=== PATIENT | female | born 1935 | race Caucasian/White ===

== ENCOUNTER 2023-02-14 10:21 | Emergency (ER) | payer MEDICARE, OTHER, SELFPAY ==
[2023-02-14 10:26] VITALS: BP 181/93; PULSE 71; RESP 16; TEMP 36.7; O2SAT 97
--- NOTE | 2023-02-14 10:45 | ED_ITS ---
HPI - General Adult General Time Seen by Provider: 10:45 Date Seen: 02/14/23 Chief complaint: Lower Extremity Swelling Stated complaint: Pain in L calf/knee Time Seen by Provider: 02/14/23 10:34 Source: patient and RN notes reviewed Mode of arrival: ambulatory Limitations: no limitations History of Present Illness HPI narrative: Patient coming in with left knee pain over last couple of days. No known injury/trauma, no fevers. 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 She states that they never did find out underlying cause. Hurts most with movement, like getting up, possibly bending. There is some discomfort with walking. I do not get sense of instability as she states her balance is off baseline. Has not noted any erythema, no increased lower leg swelling, does wear compression stocking on that leg. She ended up having right lower extremity amputated due to ischemia. She reports recent INR, possibly even this week, of 2.1 in clinic. Nursing staff later reported that patient is on potassium Lasix, has had some medication adjustments. Did wonder if we should check electrolytes. I did subsequently order basic metabolic panel, certainly the nurse's thought of possible muscle cramps was a very reasonable thought. We will update INR since we are doing blood work just to ensure stability. Related Data Home Medications Medication Instructions Recorded Confirmed alendronate 70 mg tablet 70 mg PO 02/14/23 amlodipine 10 mg tablet 10 mg PO DAILY 02/14/23 02/14/23 atorvastatin 20 mg tablet 20 mg PO DAILY cholesterol 02/14/23 02/14/23 fluoxetine 40 mg capsule 20 mg PO QAM 02/14/23 02/14/23 furosemide 40 mg tablet 20 mg PO DAILY swelling 02/14/23 02/14/23 gabapentin 600 mg tablet mg PO 02/14/23 hydralazine 25 mg tablet 25 mg PO 3XD blood pressure 02/14/23 02/14/23 losartan 100 mg tablet 100 mg PO DAILY 02/14/23 02/14/23 metoprolol succinate 100 mg 100 mg PO blood pressure 02/14/23 tablet,extended release 24 hr potassium chloride 10 mEq 10 meq PO DAILY 02/14/23 02/14/23 tablet,extended release warfarin 2 mg tablet 6 mg PO DAILY 02/14/23 02/14/23 warfarin 5 mg tablet 5 mg PO .dailyw 02/14/23 02/14/23 Allergies Allergy/AdvReac Type Severity Reaction Status Date / Time No Known Drug Allergies Allergy Verified 02/14/23 10:32 [facility] Social History Smoking Status: Never smoker Do you use any of these nicotine containing products: None Second hand tobacco smoke exposure: No How often do you have a drink containing alcohol: never AUDIT-C Alcohol total score: 0 Non-prescribed substance use: denies use service: No Exam Const: Vital Signs, click to edit/add: Vital Signs - 24 hr 02/14/23 10:26 Temperature 98.0 F Pulse Rate [Pulse Oximeter] 71 Respiratory Rate 16 Blood Pressure [Ri ght Upper Arm] 181/93 H Pulse Oximetry 97 Oxygen Delivery Me thod Room Air Documenting provider has reviewed patient's vital signs: yes Common normals: no apparent distress, oriented x3, no limitations, healthy appearing, alert and well nourished General appearance: cooperative, comfortable, well kempt and well developed HENMT: Common normals: normocephalic, head/scalp atraumatic, hearing grossly normal bilaterally and external nose normal Head and scalp: normocephalic and atraumatic Face and sinus: normal facial exam Nose: external nose normal Eye: Common normals: PERRL, EOMs intact bilaterally, conjunctivae normal and no scleral icterus Conjunctiva: conjunctiva(e) normal Pupil: PERRL Resp: Common normals: normal respiratory effort, no retractions, no use of accessory muscles and clear to auscultation bilaterally Auscultation: clear to auscultation bilaterally Cardio: Common normals: regular rate, regular rhythm, S1 normal heart sound, S2 normal heart sound, no gallops, no clicks and no murmurs Rate: regular rate Rhythm: regular rhythm Heart sounds: S1 normal and S2 normal GI: Common normals: Normal to inspection, nondistended, normoactive bowel sounds present, soft to palpation, non-tender and no hepatosplenomegaly Palpation: soft and no hepatosplenomegaly Extremity: Other: Compression stocking removed from LLE, no underlying edema, good strong pulses in foot (dorsalis pedis, posterior tibialis), entire extremity with normal coloration and warmth, no erythema/mottling/vascular changes noted. The knee itself has some medial joint line tenderness, can do full flexion/extension through the knee without complaint of pain, no laxity noted. No effusion noted. 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 I cannot 100% effectively tell her though on clinical exam. Thus, will obtain venous and arterial imaging with ultrasound to ensure no occlusion. Did later order lecture lytes an INR to ensure that her INR was therapeutic. We will get an x-ray of her knee. I have also reviewed with her that arthritis, things like Conroy cyst can cause pain. I suspect her pain is coming from the knee joint but this remains to be seen. Nursing staff upon talking to at 1 point thought maybe possible muscle cramps, also consideration, electrolytes pending. Reevaluation(s) Reevaluation #1: Have reviewed with patient her negative venous and arterial ultrasounds. Her knee x-ray does show some mild arthritis. 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 Electrolytes looked fine. Recommendations for follow-up with her primary care provider reviewed, consideration of steroid injection in knee for symptomatic relief of Conroy cyst. May need to go to Orthopedics given that she is on anticoagulation. Time: 13:16 Vital Signs Vital signs: Initial Vital Signs Temperature 98.0 F 02/14/23 10:26 Temperature Source Temporal Artery Scan 02/14/23 10:26 Pulse Rate 71 02/14/23 10:26 Pulse Rhythm Regular 02/14/23 10:26 Pulse Strength 3+ Normal 02/14/23 10:26 Respiratory Rate 16 02/14/23 10:26 Blood Pressure 181/93 H 02/14/23 10:26 Blood Pressure Mean 122 H 02/14/23 10:26 Blood Pressure Position Sitting 02/14/23 10:26 Pulse Oximetry 97 02/14/23 10:26 Oxygen Delivery Method Room Air 02/14/23 10:26 Vital Signs Temperature 98.0 F 02/14/23 10:26 Pulse Rate 71 02/14/23 10:26 Respiratory Rate 16 02/14/23 10:26 Blood Pressure 181/93 H 02/14/23 10:26 Pulse Oximetry 97 02/14/23 10:26 Oxygen Delivery Method Room Air 02/14/23 10:26 Temperature 98.0 F 02/14/23 10:26 Pulse Rate 71 02/14/23 10:26 Respiratory Rate 16 02/14/23 10:26 Blood Pressure 181/93 H 02/14/23 10:26 Pulse Oximetry 97 02/14/23 10:26 Oxygen Delivery Method Room Air 02/14/23 10:26 Medical Decision Making Lab Data Lab results reviewed: Yes I reviewed the patient's lab results Lab results narrative: Magnesium was ordered but we were unable to do so due to limit its with the reagent for this on the machine. Labs: Lab Results 02/14/23 Range/Units 12:20 INR 2.34 H (0.91-1.10) Sodium 139 (135-149) mmol/L Potassium 3.9 (3.6-5.1) mmol/L Chloride 101 (96-114) mmol/L Carbon Dioxide 30 (20-32) mmol/L BUN 16 (7-30) mg/dL Creatinine 1.2 (0.5-1.5) mg/dL Estimated Creat Clear 30.84 Estimated GFR 44 ml/min Glucose 103 (60-115) mg/dL Calcium 9.9 (8.4-10.6) mg/dL Imaging Data XR left knee: Attestation: I have reviewed the pertinent imaging results. My impression: I appreciate medial joint space narrowing and some spurring on the medial aspect. Await Radiology over-read. Radiologist's impression: Patient: MELANY PARSONS Facility:?[facility] Patient ID:?[id number] Site Patient ID:?[id number]. Site :?[id number] Study:?XRay Knee Left -02/14/2023 11:11:18 AM Ordering Physician:?Lora Austin Final Report: Indication: Knee pain Technique: Left knee 2 views Comparison: None Findings: Medial compartment narrowing and spurring. Spurring of the medial tibial spine. Vascular calcifications. Patellofemoral spurring. No joint effusion. No fracture. Impression: Medial and patellofemoral compartment degenerative joint disease. Dictated by Dionte Gabriel MD @ 02/14/2023 11:27:50 AM (Electronic Signature) US venous: Attestation: I have reviewed the pertinent imaging results. Radiologist's impression: Patient: MELANY PARSONS Facility:?[facility] Patient ID:?[id number] Site Patient ID:?[id number]. Site :?[id number] Study:?US Extremity Left DVT-02/14/2023 12:15:34 PM Ordering Physician:Nav Austin Final Report: INDICATION: Pain posterior to the left knee TECHNIQUE: Ultrasound venous duplex lower left extremity. Compression venous exam was performed using flores-scale, color Doppler, and spectral Doppler analysis. COMPARISON: None FINDINGS: Sonographic imaging demonstrates the left common femoral, deep femoral, superficial femoral, popliteal, posterior tibial and greater saphenous veins to be fully compressible with normal color Doppler blood flow. 1.3 centimeter x 0.5 centimeter x 0.7 centimeter Conroy`s cyst. IMPRESSION: Normal left lower extremity venous ultrasound, no sign of deep venous thrombosis. 1.3 centimeter left Conroy`s cyst. Dictated by Dionte Kamara MD @ 02/14/2023 12:59:39 PM Dictated by: Dionte Kamara MD @ 02/14/2023 12:59:45 (Electronic Signature) US arterial: Attestation: I have reviewed the pertinent imaging results. Radiologist's impression: Patient: MELANY PARSONS Facility:?[facility] Patient ID:?[id number]?1935 Study:?US Extremity Left arterial-02/14/2023 12:14:36 PM Ordering Physician:Nav Austin Final Report: DUPLEX ARTERIAL ULTRASOUND LEFT LOWER EXTREMITY, 02/14/2023 CLINICAL HISTORY: Left lower extremity arterial pain. 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 COMPARISON: None. TECHNIQUE: The left lower extremity arteries were examined per exam specific protocol with flores-scale ultrasound, color-flow and Doppler spectral analysis. Peak systolic velocities (PSV), Doppler waveform quality and Velocity Ratios if applicable, were documented at sites per exam specific protocol. FINDINGS: LEFT: PSV (cm/second). Waveform (Tri-T, Bi-B Henry-M). CURTAIN SUPERVISOR: 98. T DFA: 95. B FA PRX: 99. T FA MID: 85. T FA DISTAL: 71. T POP A: 60. MULTI CADE A: 39. M BODY TRIMMER UPHOLSTERER: 78. B NURY: 38. B DPA: 52. B Mildly multiphasic waveforms are seen throughout the left lower extremity arterial system with monophasic waveforms in the peroneal artery. No hemodynamically significant stenoses or occlusions are identified. IMPRESSION: Predominantly multiphasic waveforms throughout the left lower extremity arterial system. No evidence of hemodynamically significant stenoses or occlusions. Jone Carlisle M.D. Vascular [facility] Interventional [email or web address] D& Transcribed: 12:41 p.m. jacob/Dictated by: Jone Carlisle MD @ 02/14/2023 12:29:00 PM (Electronic Signature) Discharge Plan Discharge Clinical Impression: Conroy cyst, Knee osteoarthritis Patient Disposition: Home, Self-Care Condition: Stable Instructions: Osteoarthritis (ED), Conroy Cyst (ED) Additional Instructions: INR is good today at 2.34. Your electrolytes were normal. There is some mild arthritis in this knee and there is a Conroy cyst demonstrated on ultrasound. I would recommend follow-up with your primary care provider, they can refer you for possible joint injection or perform this themselves if they are comfortable with the procedure. It is likely the pain your exhibiting is coming from the knee itself in the Conroy cyst. Sometimes a Conroy cyst will rupture and then you may feel pain moving down into the calf. I would recommend Tylenol, up to a 1000 mg 3 times a day as needed for pain. Activity Level: Activity as Tolerated Prescriptions: No Action warfarin 5 mg tablet 5 mg PO .dailyw Patient Comments: 5mg wednesdays. 6mg every other day. warfarin 2 mg tablet 6 mg PO DAILY Patient Comments: 6mg every day but wednesdays furosemide 40 mg tablet 20 mg PO DAILY fluoxetine 40 mg capsule 20 mg PO QAM gabapentin 600 mg tablet PO atorvastatin 20 mg tablet 20 mg PO DAILY alendronate 70 mg tablet 70 mg PO metoprolol succinate 100 mg tablet extended release 24 hr 100 mg PO hydralazine 25 mg tablet 25 mg PO 3XD potassium chloride 10 mEq tablet extended release 10 meq PO DAILY amlodipine 10 mg tablet 10 mg PO DAILY losartan 100 mg tablet 100 mg PO DAILY Follow Up/Referrals: Dustin Kessler MD [Referring] - Stand Alone Forms: [facility] Info Instructions
--- NOTE | 2023-02-14 10:54 | CRLHL7_ITS ---
For Patients: As a result of the Century Cures Act, medical imaging exams and procedure reports are released immediately into your electronic medical record. You may view this report before your referring provider. If you have questions, please contact your health care provider. Indication: Knee pain Technique: Left knee 2 views Comparison: None Findings: Medial compartment narrowing and spurring. Spurring of the medial tibial spine. Vascular calcifications. Patellofemoral spurring. No joint effusion. No fracture. Impression: Medial and patellofemoral compartment degenerative joint disease. Dictated by Dionte Gabriel MD @ 02/14/2023 11:27:50 AM (Electronically Signed)
--- NOTE | 2023-02-14 10:56 | CRLHL7_ITS ---
For Patients: As a result of the Century Cures Act, medical imaging exams and procedure reports are released immediately into your electronic medical record. You may view this report before your referring provider. If you have questions, please contact your health care provider. DUPLEX ARTERIAL ULTRASOUND LEFT LOWER EXTREMITY, 02/14/2023 CLINICAL HISTORY: Left lower extremity arterial pain. 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 COMPARISON: None. TECHNIQUE: The left lower extremity arteries were examined per exam specific protocol with flores-scale ultrasound, color-flow and Doppler spectral analysis. Peak systolic velocities (PSV), Doppler waveform quality and Velocity Ratios if applicable, were documented at sites per exam specific protocol. FINDINGS: LEFT: PSV (cm/second). Waveform (Tri-T, Bi-B Ponce-M). MAINTENANCE TRAINER: 98. T DFA: 95. B FA PRX: 99. T FA MID: 85. T FA DISTAL: 71. T POP A: 60. MULTI CADE A: 39. M FILM WRITER: 78. B NURY: 38. B DPA: 52. B Mildly multiphasic waveforms are seen throughout the left lower extremity arterial system with monophasic waveforms in the peroneal artery. No hemodynamically significant stenoses or occlusions are identified. IMPRESSION: Predominantly multiphasic waveforms throughout the left lower extremity arterial system. No evidence of hemodynamically significant stenoses or occlusions. Jone Carlisle M.D. [email or web address] james/Dictated by: Jone Carlisle MD @ 02/14/2023 12:29:00 PM (Electronically Signed)
--- NOTE | 2023-02-14 10:57 | CRLHL7_ITS ---
For Patients: As a result of the Century Cures Act, medical imaging exams and procedure reports are released immediately into your electronic medical record. You may view this report before your referring provider. If you have questions, please contact your health care provider. INDICATION: Pain posterior to the left knee TECHNIQUE: Ultrasound venous duplex lower left extremity. Compression venous exam was performed using flores-scale, color Doppler, and spectral Doppler analysis. COMPARISON: None FINDINGS: Sonographic imaging demonstrates the left common femoral, deep femoral, superficial femoral, popliteal, posterior tibial and greater saphenous veins to be fully compressible with normal color Doppler blood flow. 1.3 centimeter x 0.5 centimeter x 0.7 centimeter Conroy`s cyst. IMPRESSION: Normal left lower extremity venous ultrasound, no sign of deep venous thrombosis. 1.3 centimeter left Conroy`s cyst. Dictated by Dionte Kamara MD @ 02/14/2023 12:59:39 PM Dictated by: Dionte Kamara MD @ 02/14/2023 12:59:45 (Electronically Signed)
--- NOTE | 2023-02-14 12:00 | PC.NURSE ---
Patient has voided X2. States she is urinating more than normal. Patients PCP stopped her Blood sugar medication last week. Recommened she check her blood sugar daily and follow up with her PCP. Also taking a diuretic.
--- NOTE | 2023-02-14 12:10 | ED.NURSE ---
Urinating more than usual. Denies UTI symptoms. PCP stopped her metformin last week. Decreased her lasix and on potassium. notified MD of this. Labs ordered.
[2023-02-14 12:46] LABS: Chloride* 101 mmol/L (96-114); Sodium* 139 mmol/L (135-149)
[2023-02-14 12:47] LABS: Potassium* 3.9 mmol/L (3.6-5.1)
[2023-02-14 12:49] LABS: Creatinine* 1.2 mg/dL (0.5-1.5); Est. Creatinine Clearance* 30.84; Estimated Glomerular Filt Rate 44 ml/min; INR 2.34 (0.91-1.10); Prothrombin Time 26.8 Seconds
[2023-02-14 12:50] LABS: Blood Urea Nitrogen* 16 mg/dL (7-30); Calcium* 9.9 mg/dL (8.4-10.6); Carbon Dioxide* 30 mmol/L (20-32); Glucose* 103 mg/dL (60-115)
[2023-02-14 13:44] VITALS: BP 172/74; BP 191/91; PULSE 81; RESP 16; TEMP 36.5; O2SAT 98
[2023-02-14 13:45] VITALS: BP 190/78
--- NOTE | 2023-02-14 13:46 | PC.NURSE ---
Patients blood pressure was elevated more than when patient came in. Rechecked BP manually on both sides. Updated MD on results. Patient denies headache, shortness of breath and dizziness. MD recommended patient follow up with PCP regarding blood pressure. This was communicated to patient and her sister.
== END 2023-02-14 13:48 | disposition home or self-care (01) ==
PROVIDERS: Emergency Provider Family Medicine; PCP Family Medicine
DX: M71.22 Synovial cyst of popliteal space [Baker], left knee (principal); M17.12 Unilateral primary osteoarthritis, left knee; R93.89 Abnormal findings on diagnostic imaging of other specified body structures
CPT/HCPCS: 36415; 73560; 80048; 83735; 85610; 93926; 93971; 99284

== ENCOUNTER 2023-07-09 12:24 | Emergency (ER) | payer MEDICARE, OTHER, SELFPAY ==
[2023-07-09 13:11] VITALS: BP 169/81; PULSE 57; RESP 16; TEMP 36.4; O2SAT 97; BMI 27.5
--- NOTE | 2023-07-09 16:44 | ED.BACK ---
HPI - Back Pain/Injury General Chief Complaint: Back Injury/Pain Stated Complaint: Sciatica L leg Time Seen by Provider: 07/09/23 16:18 History of Present Illness HPI Narrative: This 88-year-old female comes in with pain radiating from her left buttock all the way down to her foot. This began a couple days ago and seemed to happen after she bent over a to pick something up. She felt a little click in her low back and left hip area which has now generated into significant pain. 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 She is on Coumadin. She does not describe any other significant injury event or strenuous activity. Related Data Home Medications Medication Instructions Recorded Confirmed alendronate 70 mg tablet 70 mg PO .weekly 02/14/23 07/09/23 amlodipine 10 mg tablet 10 mg PO DAILY 02/14/23 07/09/23 atorvastatin 20 mg tablet 20 mg PO DAILY cholesterol 02/14/23 07/09/23 fluoxetine 40 mg capsule 20 mg PO QAM 02/14/23 07/09/23 furosemide 40 mg tablet 20 mg PO DAILY swelling 02/14/23 07/09/23 gabapentin 600 mg tablet 600 mg PO 02/14/23 hydralazine 25 mg tablet 25 mg PO 3XD blood pressure 02/14/23 07/09/23 losartan 100 mg tablet 100 mg PO DAILY 02/14/23 07/09/23 metoprolol succinate 100 mg 100 mg PO DAILY blood pressure 02/14/23 07/09/23 tablet,extended release 24 hr potassium chloride 10 mEq 10 meq PO DAILY 02/14/23 07/09/23 tablet,extended release warfarin 2 mg tablet 6 mg PO DAILY 02/14/23 07/09/23 warfarin 5 mg tablet 5 mg PO .dailyw 02/14/23 07/09/23 Previous Rx's Medication Instructions Recorded cyclobenzaprine 10 mg tablet 10 mg PO TID #15 tabs 07/09/23 hydrocodone 5 mg-acetaminophen 325 1 tab PO Q4-6H PRN pain #15 tabs 07/09/23 mg tablet methylprednisolone 4 mg tablets in See Rx Instructions PO .COMPLEX 07/09/23 a dose pack (Medrol (Amauri)) #21 ea Allergies Allergy/AdvReac Type Severity Reaction Status Date / Time morphine Allergy Severe Verified 10/24/23 13:10 Review of Systems Status of ROS: Reports: 10 or more systems reviewed and unremarkable except as noted in History and below Narrative: Constitutional: No fevers, no weight gain or loss. Eyes: No discharge. No vision changes. HENT: No congestion, no sore throat, no ear pain. Cardiovascular: No chest pain, no palpitations. Respiratory: No shortness of breath, no wheezes, no cough. Gastrointestinal: No abdominal pain, no vomiting, no diarrhea. Genitourinary: No dysuria, no hematuria. Musculoskeletal: Normal range of motion. Right below the knee amputation. Left leg pain as described above. Skin: No rashes, no pruritis. Neurological: No dizziness, weakness, sensory change, speech change. Endo/Heme/Allergies: No bruising or bleeding. No polydipsia. Pysch: no suicidality, no anxiety, no insomnia. All other systems reviewed and are negative. PFS PFS Social History Smoking Status: Never smoker Do you use any of these nicotine containing products: None Second hand tobacco smoke exposure: No How often do you have a drink containing alcohol: never AUDIT-C Alcohol total score: 0 Non-prescribed substance use: denies use service: No Exam Narrative: Exam Narrative: Constitutional: Well-developed, well-nourished, no acute distress. HEENT: Normocephalic, atraumatic. Neck: Normal range of motion. Nontender. Supple. Heart: Intact distal pulses. Lungs: No chest discomfort. No wheezes, rhonchi, or rales. Abdomen: Nontender. Back: Normal range of motion. Extremities: Normal range of motion. Right [id number] amputation. 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 She wears a compression stocking. Skin: Intact. No rash. Warm. No erythema or pallor. Neurologic: No altered sensation. No weakness. Alert and oriented. Straight leg raise of the left leg elicits pain in the left buttock and left hand string. She does not report increased pain in the low back. Psychiatric: No suicidality. No anxiety or depression. No insomnia. Nursing notes and vitals signs are reviewed. Const: Vital Signs, click to edit/add: Vital Signs - 24 hr 07/09/23 13:11 Temperature 97.6 F Pulse Rate [Pulse Oximeter] 57 L Respiratory Rate 16 Blood Pressure [Le ft Upper Arm] 169/81 H Pulse Oximetry 97 Oxygen Delivery Me thod Room Air Course Vital Signs Vital signs: Initial Vital Signs Temperature 97.6 F 07/09/23 13:11 Temperature Source Temporal Artery Scan 07/09/23 13:11 Pulse Rate 57 L 07/09/23 13:11 Pulse Rhythm Regular 07/09/23 13:11 Pulse Strength 3+ Normal 07/09/23 13:11 Respiratory Rate 16 07/09/23 13:11 Blood Pressure 169/81 H 07/09/23 13:11 Blood Pressure Mean 110 H 07/09/23 13:11 Blood Pressure Position Sitting 07/09/23 13:11 Pulse Oximetry 97 07/09/23 13:11 Oxygen Delivery Method Room Air 07/09/23 13:11 Vital Signs Temperature 97.6 F 07/09/23 13:11 Pulse Rate 57 L 07/09/23 13:11 Respiratory Rate 16 07/09/23 13:11 Blood Pressure 169/81 H 07/09/23 13:11 Pulse Oximetry 97 07/09/23 13:11 Oxygen Delivery Method Room Air 07/09/23 13:11 Temperature 97.6 F 07/09/23 13:11 Pulse Rate 57 L 07/09/23 13:11 Respiratory Rate 16 07/09/23 13:11 Blood Pressure 169/81 H 07/09/23 13:11 Pulse Oximetry 97 07/09/23 13:11 Oxygen Delivery Method Room Air 07/09/23 13:11 MDM - Back Pain/Injury MDM Narrative Medical decision making narrative: This patient comes in with pain typical of sciatica or lumbar radiculopathy. There was no significant injury event or strenuous activity that requires imaging study at this time. She may at some point need MRI imaging. She does have a history of arterial blood clot that caused amputation of her right lower extremity. She is on Coumadin. She is not exhibiting typical signs and symptoms of deep venous thrombosis but rather a compression of the nerve some more radiating now down her left leg. Perhaps this is occurring at the low back or in the left buttock the sciatic notch. I did discuss lab and imaging options with the patient but these were declined in a process of shared decision making. She is taking gabapentin. She is not a candidate for NSAIDs as she is on Coumadin. She did received prescription for Medrol Dosepak, Hope, and Flexeril. I advised her to follow up with [facility] if not improving or return if worsening. Discharge Plan Discharge Clinical Impression: Sciatica Patient Disposition: Home, Self-Care Condition: Unchanged Additional Instructions: Take medications as needed and directed. Increase activity as tolerated. Follow [facility] with [facility] and call for appointment by dialing [phone]. Return if worsening. Prescriptions: New cyclobenzaprine 10 mg tablet 10 mg PO TID Qty: 15 0RF hydrocodone-acetaminophen 5-325 mg tablet 1 tab PO Q4-6H PRN (Reason: pain) Qty: 15 0RF methylprednisolone [Medrol (Amauri)] 4 mg tablets,dose pack See Rx Instructions .ROUTE .COMPLEX Qty: 21 0RF Rx Instructions: orally per package directions No Action warfarin 5 mg tablet 5 mg PO .dailyw Patient Comments: 5mg wednesdays. 6mg every other day. warfarin 2 mg tablet 6 mg PO DAILY Patient Comments: 6mg every day but wednesdays furosemide 40 mg tablet 20 mg PO DAILY fluoxetine 40 mg capsule 20 mg PO QAM gabapentin 600 mg tablet 600 mg PO atorvastatin 20 mg tablet 20 mg PO DAILY alendronate 70 mg tablet 70 mg PO .weekly metoprolol succinate 100 mg tablet extended release 24 hr 100 mg PO DAILY hydralazine 25 mg tablet 25 mg PO 3XD potassium chloride 10 mEq tablet extended release 10 meq PO DAILY amlodipine 10 mg tablet 10 mg PO DAILY losartan 100 mg tablet 100 mg PO DAILY Follow Up/Referrals: Roni Roy MD [Primary Care Provider] - Stand Alone Forms: [employer] Info Instructions
== END 2023-07-09 17:05 | disposition home or self-care (01) ==
LOC: ED 16:58
PROVIDERS: Emergency Provider Emergency Medicine Emergency Medical Services; PCP Family Medicine
DX: M54.32 Sciatica, left side (principal)
CPT/HCPCS: 99283; 99284